=== PATIENT | female | born 1995 | race Caucasian/White ===

== ENCOUNTER 2018-05-25 15:11 | Emergency (ER) | payer SELFPAY ==
[2018-05-25 15:18] VITALS: BP 121/81
[2018-05-25] MEDS ORDERED: TETRACAINE HCL 0.5% OPH SOLN 2 ML OS ONE (15:41)
[2018-05-25] MEDS ORDERED: TETRACAINE HCL 0.5% OPH SOLN 2 ML ONE (15:43)
--- NOTE | 2018-05-25 16:05 | ER Document Report ---
HPI - HPI Patient complains to provider of: eye pain Onset: Other - 3 day Onset/Duration: Persistent Quality of pain: Burning Pain Level: 4 Context: Patient presents complaining of left eye pain and blurred vision. Patient does wear contact lenses but took them out when she started to have eye pain symptoms. Patient denies any injury to the eye. Patient does report light sensitivity. Patient denies sleeping in her contact lenses. Associated Symptoms: Other - Left eye pain Exacerbated by: Denies Relieved by: Denies Similar symptoms previously: No Recently seen / treated by doctor: No - ROS ROS below otherwise negative: Yes Systems Reviewed and Negative: Yes All other systems reviewed and negative - EENT EENT: REPORTS: Eye problems - GASTROINTESTINAL Gastrointestinal: DENIES: Nausea, Patient vomiting - MUSCULOSKELETAL Musculoskeletal: DENIES: Neck Pain - DERM Skin Color: Normal Skin Problems: None Past Medical History - General Information source: Patient - Social History Smoking Status: Never Smoker Chew tobacco use (# tins/day): No Frequency of alcohol use: Occasional Drug Abuse: None Occupation: [employer] Lives with: Family Family History: Reviewed & Not Pertinent Patient has suicidal ideation: No Patient has homicidal ideation: No - Medical History Medical History: Negative Renal/ Medical History: Denies: Hx Peritoneal Dialysis Surgical Hx: Negative Vertical Provider Document - CONSTITUTIONAL Agree With Documented VS: Yes Exam Limitations: No Limitations General Appearance: WD/WN, No Apparent Distress - INFECTION CONTROL TRAVEL OUTSIDE OF THE [place] IN LAST 30 DAYS: No - HEENT HEENT: Atraumatic, Normocephalic - NECK Neck: Normal Inspection - RESPIRATORY Respiratory: No Respiratory Distress - MUSCULOSKELETAL/EXTREMETIES Musculoskeletal/Extremeties: MAEW - NEURO Level of Consciousness: Awake, Alert, Appropriate Motor/Sensory: No Motor Deficit - DERM Integumentary: Warm, Dry, No Rash Course - Re-evaluation Re-evalutation: 05/25/18 16:[address] Macias who agrees to see patient in the office tomorrow at 8 AM. Advises instilling Besivance every 2 hours tonight and erythromycin at bedtime. - Vital Signs Vital signs: Temp Pulse Resp BP Pulse Ox 98.7 F 108 H 18 121/81 100 05/25/18 15:16 05/25/18 15:16 05/25/18 15:16 05/25/18 15:16 05/25/18 15:16 Discharge - Discharge Clinical Impression: Cornea ulcer Qualifiers: Laterality: left Qualified Code(s): H16.002 - Unspecified corneal ulcer, left eye Condition: Stable Disposition: HOME, SELF-CARE Instructions: Corneal Ulceration ([facility]), Eyedrop Use ([facility]) Additional Instructions: Return immediately for any new or worsening symptoms Followup with the opthamologist in the office tomorrow at 8 AM Instill Besivance 1 drop to left eye every 2 hours while awake tonight. Instill erythromycin ointment at bedtime tonight. Prescriptions: Erythromycin Base [Erythromycin] 1 applic OP QHS #3.5 oint..gm. Forms: Return to Work Referrals: TARA MACIAS MD [ACTIVE STAFF] - Follow up tomorrow
[2018-05-25] MEDS ORDERED: BESIFLOXACIN HCL 0.6% OPH SUSP 5 ML BOTTLE OS ONE (16:22)
== END 2018-05-25 16:37 | disposition home or self-care (01) ==
LOC: ER 15:11
DX: H16.002 Unspecified corneal ulcer, left eye (principal); H57.12 Ocular pain, left eye
CPT/HCPCS: 99283

== ENCOUNTER 2019-04-15 16:11 | Emergency (ER) | payer SELFPAY ==
--- NOTE | 2019-04-15 18:52 | RADIOLOGY REPORT (SQ) ---
EXAM DESCRIPTION: CHEST 2 VIEWS COMPLETED DATE/TIME: 04/15/2019 6:31 pm REASON FOR STUDY: cough x2 weeks COMPARISON: None. EXAM PARAMETERS: NUMBER OF VIEWS: two views TECHNIQUE: Digital Frontal and Lateral radiographic views of the chest acquired. RADIATION DOSE: NA LIMITATIONS: none FINDINGS: LUNGS AND PLEURA: No opacities, masses or pneumothorax. No pleural effusion. MEDIASTINUM AND HILAR STRUCTURES: No masses or contour abnormalities. HEART AND VASCULAR STRUCTURES: Heart normal size. No evidence for failure. BONES: No acute findings. HARDWARE: None in the chest. OTHER: No other significant finding. IMPRESSION: NO ACUTE RADIOGRAPHIC FINDING IN THE CHEST. TECHNICAL DOCUMENTATION: JOB ID: [id number] [employer] All Rights Reserved Reading location - IP/workstation name: [email or web address]
[2019-04-15 19:33] VITALS: BP 121/78
[2019-04-15] MEDS ORDERED: PREDNISONE 20 MG TABLET PO ONE (19:43)
[2019-04-15] MEDS ORDERED: ALBUTEROL SULFATE HFA (90 MCG/PUFF) 8 GM MDI (1 MDI/ER DISP) IH ONE (19:44)
--- NOTE | 2019-04-15 19:49 | ER Document Report ---
HPI - HPI Time Seen by Provider: 04/15/19 17:16 Pain Level: Denies Notes: Patient is an otherwise healthy 24-year-old female presented to the emergency department with multiple viral upper respiratory symptoms today. Patient reports cough, congestion over the last 2 weeks. States she has tried taking [id number] medications with no help. Patient reports now she has chest pain and attempted a deep breath or coughs. She denies any shortness of breath. - REPRODUCTIVE Reproductive: DENIES: : - DERM Skin Color: Normal Past Medical History - General Information source: Patient - Social History Smoking Status: Never Smoker Chew tobacco use (# tins/day): No Frequency of alcohol use: Rare Drug Abuse: None Family History: Reviewed & Not Pertinent Patient has suicidal ideation: No Patient has homicidal ideation: No Renal/ Medical History: Denies: Hx Peritoneal Dialysis Past Surgical History: Reports: Hx Tonsillectomy Vertical Provider Document - CONSTITUTIONAL Notes: PHYSICAL EXAMINATION: GENERAL: Well-appearing, well-nourished and in no acute distress. HEAD: Atraumatic, normocephalic. EYES: Pupils equal round extraocular movements intact, conjunctiva are normal. ENT: Nares with clear rhinorrhea, oropharynx clear, nonerythematous, no exudates noted, uvula midline. NECK: Normal range of motion LUNGS: No respiratory distress, lung sounds clear other than a very faint expiratory wheeze on the left lower lung. Musculoskeletal: Normal range of motion NEUROLOGICAL: Normal speech, normal gait. PSYCH: Normal mood, normal affect. SKIN: Warm, Dry, normal turgor, no rashes or lesions noted. - INFECTION CONTROL TRAVEL OUTSIDE OF THE [place] IN LAST 30 DAYS: No Course - Re-evaluation Re-evalutation: Chest x-ray is negative for any acute infiltrates or pneumothorax. EKG shows a sinus rhythm, normal rate, normal axis, no ST segment elevations or depressions to suggest ischemia. Likely viral upper respiratory illness. Patient will be started on prednisone and given albuterol dispense for shortness of breath or bronchospasm. Patient encouraged to follow-up with primary care. - Vital Signs Vital signs: Temp Pulse Resp BP Pulse Ox 97.8 F 101 H 16 121/78 100 04/15/19 19:32 04/15/19 19:32 04/15/19 19:32 04/15/19 19:32 04/15/19 19:32 Discharge - Discharge Clinical Impression: Upper respiratory infection Qualifiers: URI type: unspecified viral URI Qualified Code(s): J06.9 - Acute upper respiratory infection, unspecified Condition: Stable Disposition: HOME, SELF-CARE Additional Instructions: Your symptoms are most likely due to a viral infection it should resolve over the next 7-14 days. You should take [id number] guanfacine per bottle instructions to help thin the mucus. For nasal congestion: I would recommend that you get [id number] oxymetazoline also known is afrin. Use only per bottle instructions and be sure to never use this for more than 3 days if you can develop severe rebound congestion. You may also use tylenol or ibuprofen as needed for aches and thorat discomfort. Please be sure to drink plenty of fluids and get rest. Return to the emergency department he began having difficulty breathing, chest pain, persistent vomiting, or any other symptoms that are concerning to you. Prescriptions: Prednisone [Deltasone 20 mg Tablet] 3 tab PO DAILY 4 Days #12 tablet
--- NOTE | 2019-04-16 19:17 | EKG REPORT ---
SEVERITY:- NORMAL ECG - SINUS RHYTHM : Confirmed by: Laura Rose 16-Apr-2019 19:15:42
== END 2019-04-15 19:52 | disposition home or self-care (01) ==
LOC: ER 16:11
DX: J06.9 Acute upper respiratory infection, unspecified (principal); B97.89 Other viral agents as the cause of diseases classified elsewhere; R05 Cough; R07.1 Chest pain on breathing; J34.89 Other specified disorders of nose and nasal sinuses; R06.2 Wheezing
CPT/HCPCS: 93005; 99283; 71046; 93010; J7512; J3490